=== PATIENT | male | born 1990 | race Caucasian/White ===

== ENCOUNTER 2017-01-13 21:20 | Emergency (ER) | payer OTHER ==
--- NOTE | ~2017-01-13 | ER ---
PATIENT'S NAME: TEJA WEIR [facility] AGE: 26 Y [address] ROOM: [place] [address] LOCATION: [facility] ADMIT DATE: 01/13/2017 ER/Outpatient Report DISCHARGE DATE: 01/13/2017 FAMILY PHYSICIAN: PHYSICIAN, NO ATTENDING PHYSICIAN: William Carvalho Time of Arrival: 2120 hours. Time of Evaluation: 2125 hours. CHIEF COMPLAINT: Right knee injury. HISTORY OF PRESENT ILLNESS: This is a 26-year-old male, who presents to the ER with a right knee injury that happened approximately 2 hours prior to arrival. The patient states he was scuba diving when he felt like his right knee felt like it popped out. He states he is able to bend the knee, but he is having difficulty extending it all the way out. He states the pain that he feels on the medial aspect. He states it has popped out before, but he always got it to pop back in, but he has not been able to tonight. ALLERGIES: NO KNOWN ALLERGIES. MEDICATIONS: None. PAST MEDICAL HISTORY: Negative. PAST SURGICAL HISTORY: Right knee surgery. SOCIAL HISTORY: He does chew tobacco. Drinks alcohol occasionally. REVIEW OF SYSTEMS: CONSTITUTIONAL: Denies any change in weight or fatigue. MUSCULOSKELETAL: Complaining of right knee pain. HEME: No easy bruising or bleeding. SKIN: No lesions or rashes. PHYSICAL EXAMINATION: VITAL SIGNS: Height 6 feet 1 inch stated, weight 100.9 kg taken, blood pressure is 169/86, pulse 89, respirations 18, temperature 97.9 degrees PATIENT'S NAME: TEJA WEIR [facility] AGE: 26 Y [address] ROOM: [place] [address] LOCATION: [facility] ADMIT DATE: 01/13/2017 ER/Outpatient Report DISCHARGE DATE: 01/13/2017 FAMILY PHYSICIAN: PHYSICIAN, NO ATTENDING PHYSICIAN: William Carvalho tympanically, and saturations 98% on room air. [place] Coma Score is 15. GENERAL: Alert, calm, well-developed, 26-year-old, in no acute distress. EXTREMITIES: No clubbing or cyanosis. MUSCULOSKELETAL: He does have good range of motion. When he flexes his knee, he has no unstableness to his knee with range of motion. However, he does have tenderness over the medial aspect of his knee when we tried to extend the knee out fully. He has no pain with palpation over the posterior or lateral aspect of the knee. He has full range of motion of all other limbs. NEUROLOGIC: Cranial nerves 2 through 12 grossly intact. Gait is steady with obvious limp. LABORATORY DATA: None were done. X-RAYS: X-rays of the right knee showed no obvious fracture. IMPRESSION: Right knee injury. ASSESSMENT AND PLAN: Discussed the patient's care with Dr. Carvalho. Dr. Carvalho also evaluated the patient. The patient did not want to place a knee immobilizer on; he did not want crutches. We will dismiss him to home. He needs to ice and elevate the knee, take Tylenol or ibuprofen as needed for pain control. We advised him to follow up with his orthopedic in the next 1 to 2 days for followup care. The patient understands and agrees with care. MYAH AMES PA-C FOR MD HAZEL MARTINES/jamil /[id number] I have personally evaluated this patient. I agree with the assessment and plan as documented above. William Carvalho MD d: 01/14/17 0206 t: 01/19/17 1227, OUTPATIENT REPORT
== END 2017-01-13 21:56 | disposition disaster alternative care site (69) ==
LOC: GACC 21:20
DX: S89.91XA Unspecified injury of right lower leg, initial encounter (principal); F17.220 Nicotine dependence, chewing tobacco, uncomplicated; W16.42XA Fall into unspecified water causing other injury, initial encounter; Y93.15 Activity, underwater diving and snorkeling